=== PATIENT | male | born 1990 | race Two or more races ===

== ENCOUNTER 2023-07-04 19:15 | Emergency (ER) | payer OTHER ==
[~2023-07-04] VITALS: Ht 177.8 cm; Wt 79.4 kg
[2023-07-04] MEDS ORDERED: KETOROLAC TROMETHAMINE 60 MG VIAL IM ONE (20:15)
[2023-07-04] MEDS ORDERED: KETO10TA2 PO (21:16)
== END 2023-07-04 21:26 | disposition home or self-care (01) ==
LOC: ER 19:15
DX: S82.62XA Displaced fracture of lateral malleolus of left fibula, initial encounter for closed fracture (principal); X58.XXXA Exposure to other specified factors, initial encounter; Y93.89 Activity, other specified; Y92.832 Beach as the place of occurrence of the external cause; Y99.9 Unspecified external cause status